=== PATIENT | female | born 1950 | race Caucasian/White ===

== ENCOUNTER 2018-05-23 15:35 | Observation (INO) | payer MEDICARE ==
[~2018-05-23] VITALS: Ht 167.6 cm; Wt 75.4 kg
[~2018-05-23 15:35] MED LIST: ADV50100 INH; FURO40TA4 PO; HYDR8TAB18; OMEP40CA37 PO; OXYC-145 PO; POTA-82 PO; SPIIN INH; TRAZ-218 PO; VAL5T PO
[2018-05-23 16:16] LABS: BASOPHILS % (AUTO) 0.4 % (0-1); EOSINOPHILS # (AUTO) 0.1 X10'3 (0-0.9); EOSINOPHILS % (AUTO) 1.8 % (0-6); HEMATOCRIT 49.9 % (35.0-45.0); HEMOGLOBIN 16.4 g/dl (12.0-16.0); LYMPHOCYTES # (AUTO) 1.3 X10'3 (1.1-4.8); LYMPHOCYTES % (AUTO) 22.8 % (21-51); MEAN CORPUSCULAR HEMOGLOBIN 29.9 PG (27.0-31.0); MEAN CORPUSCULAR HGB CONC 32.9 g/dL (33.0-36.5); MEAN PLATELET VOLUME 9.1 FL (7.4-10.4); MONOCYTES # (AUTO) 0.5 X10'3 (0-0.9); MONOCYTES % (AUTO) 8.9 % (2-12); NEUTROPHILS # (AUTO) 3.8 X10'3 (1.8-7.7); NEUTROPHILS % (AUTO) 66.1 % (42-75); PLATELET COUNT 222 X10'3 (140-440); RED BLOOD COUNT 5.49 X10'6 (4.20-5.60); RED CELL DISTRIBUTION WIDTH 13.1 % (11.5-14.5); WHITE BLOOD COUNT 5.8 X10'3 (4.5-11.0)
[2018-05-23 16:23] LABS: ALANINE AMINOTRANSFERASE 36 U/L (12-78); ALBUMIN 3.9 G/DL (3.4-5.0); ALBUMIN/GLOBULIN RATIO 1.1 (1.1-1.5); ALKALINE PHOSPHATASE 71 IU/L (46-116); ANION GAP 6 (8-16); ASPARTATE AMINO TRANSFERASE 28 U/L (10-37); BILIRUBIN,TOTAL 0.4 MG/DL (0.1-1.0); BLOOD UREA NITROGEN 12 MG/DL (7-18); BUN/CREATININE RATIO 18.5 (6.6-38.0); CALCIUM 8.9 MG/DL (8.5-10.1); CHLORIDE 100 MMOL/L (99-107); CREATININE 0.65 MG/DL (0.40-0.90); GLUCOSE 106 MG/DL (70-104); POTASSIUM 3.4 MMOL/L (3.5-5.1); SODIUM 141 MMOL/L (135-145); TOTAL CARBON DIOXIDE 34.9 MMOL/L (24-32); TOTAL PROTEIN 7.6 G/DL (6.4-8.2); eGFR > 90 ML/MIN
[2018-05-23 16:26] LABS: TROPONIN I < 0.04 NG/ML (0.0-0.05)
--- NOTE | 2018-05-23 16:37 | NUR ---
mehul martínez consult with dr. oneill
[2018-05-23 16:41] LABS: PARTIAL THROMBOPLASTIN TIME 28 SECONDS (22-32); PROTHROMBIN TIME 10.5 SECONDS (9.0-12.0)
[2018-05-23] MEDS ORDERED: iohexol 350MG/ML 100ml bottle IV ONE (17:23)
[2018-05-23] MEDS ORDERED: HYDR8TAB16 PO (17:39)
[2018-05-23] MEDS ORDERED: DIAZ-350 PO (17:39)
[2018-05-23] MEDS ORDERED: PER5325T PO (17:39)
[2018-05-23] MEDS ORDERED: [UNRECOGNIZED DRUG - OTHER] (17:42)
[2018-05-23] MEDS ORDERED: DILAUDID (17:42)
[2018-05-23] MEDS ORDERED: POTA20TA19 PO (17:43)
[2018-05-23] MEDS ORDERED: HYDR12.55 PO (17:44)
[2018-05-23] MEDS ORDERED: TRAZ-219 PO (17:44)
[2018-05-23] MEDS ORDERED: BUDE10.2 INH (17:46)
[2018-05-23] MEDS ORDERED: TIOT18CA3 PO (17:47)
[2018-05-23] MEDS ORDERED: ALBU8.5H8 IH (17:48)
[2018-05-23] MEDS ORDERED: acetaminophen 325mg tablet PO PRN (18:05)
[2018-05-23] MEDS ORDERED: magnesium hydroxide 30ml (MOM) UD suspension PO PRN (18:05)
[2018-05-23] MEDS ORDERED: mag hydrox/Alum hydrox/simeth 30ml oral suspension PO PRN (18:05)
[2018-05-23] MEDS ORDERED: ondansetron/PF 4mg/2ml inj IV PRN (18:05)
[2018-05-23] MEDS ORDERED: HYDROmorphone 2mg tablet PO PRN (18:15)
[2018-05-23] MEDS ORDERED: oxyCODONE/APAP 5-325mg tablet PO PRN (18:15)
--- NOTE | 2018-05-23 18:17 | NUR ---
PT TO CT
[2018-05-23] MEDS ORDERED: albuterol 2.5 MG/3 ML nebule NEB PRN (18:25)
[2018-05-23] MEDS ORDERED: aspirin 325mg tablet PO ONE (18:30)
[2018-05-23 18:35] LABS: CHOL/HDL RATIO 2.1 (0.00-4.99); CHOLESTEROL 121 MG/DL (0-200); HDL CHOLESTEROL 58 MG/DL (35-60); LDL CHOLESTEROL 58 MG/DL (50-100); TRIGLYCERIDES 94 MG/DL (20-135)
[2018-05-23 18:37] LABS: CLARITY,URINE CLEAR (Clear); COLOR,URINE YELLOW (Yellow); GLUCOSE, URINE NEGATIVE (Neg); KETONES,URINE NEGATIVE (Neg); LEUKOCYTE ESTERASE ,URINE TRACE (Neg); NITRITES, URINE NEGATIVE (Neg); OCCULT BLOOD,URINE NEGATIVE (Neg); PROTEIN,URINE NEGATIVE (Neg); UA COLLECTION TYPE FOLEY CATH
[2018-05-23] MEDS: dextrose 5%-1/2 normal saline 1,000 ML IV SCH ×2 (18:40→22:05)
[2018-05-23] MEDS ORDERED: albuterol 2.5 MG/3 ML nebule NEB SCH (19:00)
[2018-05-23 19:09] LABS: BACTERIA,URINE 3+ /HPF (Neg); RBC,URINE 0-2 /HPF (0-2); SQUAMOUS EPITHELIAL CELL,UR FEW /LPF (FEW); WBC,URINE 0-4 /HPF (0-4)
[2018-05-23] MEDS ORDERED: non-formulary drug (Budesonide/Formoterol Fumarate (Symbicort 160-4.5 Mcg Inhaler) 2 PUFFS INH SCH (20:00)
--- NOTE | 2018-05-23 20:49 | NUR ---
ATTEMPTED TO CALL REPORT, NO NURSE AVAILABLE TO TAKE REPORT, AIRPORT DUTY MANAGER NOTIFIED, [employer] JOURNEYMAN CONTACTED.
[2018-05-23] MEDS ORDERED: ipratropium 0.5 MG/2.5ML nebule IH SCH (21:00)
[2018-05-23] MEDS ORDERED: diazepam 5mg tablet PO SCH (21:00)
[2018-05-23] MEDS: budesonide 0.5mg/2ml UD nebule IH SCH (21:09)
[2018-05-23] MEDS: ipratropium/albuterol 3ml nebule NEB SCH (21:10)
[2018-05-23 22:00] VITALS: BP 159/67
[2018-05-23] MEDS: potassium Cl 20 mEq SR tablet PO SCH (22:06)
[2018-05-23] MEDS: traZODone 50mg tablet PO SCH (22:07)
[2018-05-24] VITALS (8 sets, daily range): BP systolic 111–145; BP diastolic 42–68
[2018-05-24] MEDS: dextrose 5%-1/2 normal saline 1,000 ML IV SCH (05:09)
[2018-05-24 05:58] LABS: BASOPHILS % (AUTO) 0.5 % (0-1); EOSINOPHILS # (AUTO) 0.1 X10'3 (0-0.9); HEMATOCRIT 44.4 % (35.0-45.0); HEMOGLOBIN 14.8 g/dl (12.0-16.0); LYMPHOCYTES # (AUTO) 1.3 X10'3 (1.1-4.8); LYMPHOCYTES % (AUTO) 25.1 % (21-51); MEAN CORPUSCULAR HEMOGLOBIN 30.2 PG (27.0-31.0); MEAN CORPUSCULAR HGB CONC 33.4 g/dL (33.0-36.5); MEAN CORPUSCULAR VOLUME 90.6 FL (78-98); MEAN PLATELET VOLUME 8.8 FL (7.4-10.4); MONOCYTES # (AUTO) 0.5 X10'3 (0-0.9); MONOCYTES % (AUTO) 10.2 % (2-12); NEUTROPHILS # (AUTO) 3.3 X10'3 (1.8-7.7); NEUTROPHILS % (AUTO) 62.2 % (42-75); PLATELET COUNT 200 X10'3 (140-440); WHITE BLOOD COUNT 5.3 X10'3 (4.5-11.0)
[2018-05-24 06:03] LABS: ALBUMIN 3.1 G/DL (3.4-5.0); ANION GAP 5 (8-16); BLOOD UREA NITROGEN 14 MG/DL (7-18); BUN/CREATININE RATIO 22.6 (6.6-38.0); CALCIUM 8.1 MG/DL (8.5-10.1); CHLORIDE 107 MMOL/L (99-107); CHOLESTEROL 98 MG/DL (0-200); CREATININE 0.62 MG/DL (0.40-0.90); GLUCOSE 100 MG/DL (70-104); HDL CHOLESTEROL 48 MG/DL (35-60); LDL CHOLESTEROL 46 MG/DL (50-100); POTASSIUM 3.7 MMOL/L (3.5-5.1); SODIUM 144 MMOL/L (135-145); TOTAL CARBON DIOXIDE 31.6 MMOL/L (24-32); TRIGLYCERIDES 37 MG/DL (20-135); eGFR > 90 ML/MIN
--- NOTE | 2018-05-24 06:30 | NUR ---
Patient in room [facility] 4009. I have received report from Lynne RN and had the opportunity to ask questions and assume patient care.
[2018-05-24] MEDS: potassium Cl 20 mEq SR tablet PO SCH (08:23)
[2018-05-24] MEDS: aspirin 325mg tablet, delayed-release (Ecotrin) PO SCH (08:23)
[2018-05-24] MEDS: HYDROchlorothiazide 12.5mg capsule PO SCH (08:23)
[2018-05-24] MEDS: enoxaparin 40mg/0.4ml syringe SUBCUT SCH (08:23)
[2018-05-24] MEDS: ipratropium/albuterol 3ml nebule NEB SCH ×2 (08:41→11:00)
[2018-05-24] MEDS: budesonide 0.5mg/2ml UD nebule IH SCH ×2 (08:42→20:34)
[2018-05-24 13:45] LABS: URINE AMPHETAMINE SCREEN NEGATIVE (Neg); URINE BARBITUATE SCREEN NEGATIVE (Neg); URINE BENZODIAZEPINES SCREEN POSITIVE (Neg); URINE CANNABINOID SCREEN NEGATIVE (Neg); URINE COCAINE SCREEN NEGATIVE (Neg); URINE METHADONE SCREEN NEGATIVE (Neg); URINE OPIATE SCREEN POSITIVE (Neg); URINE PHENCYCLIDINE SCREEN NEGATIVE (Neg)
[2018-05-24] MEDS ORDERED: HYDROmorphone 2mg tablet PO PRN (14:30)
[2018-05-24] MEDS ORDERED: ipratropium/albuterol 3ml nebule NEB PRN (14:35)
[2018-05-24] MEDS ORDERED: diazepam 5mg tablet PO PRN (14:35)
[2018-05-24] MEDS: sertraline 25mg tablet PO SCH (15:19)
[2018-05-24] MEDS: potassium Cl 20mEq in NS 1,000 ML IV SCH (15:19)
--- NOTE | 2018-05-24 18:32 | NUR ---
Problems reprioritized. Patient report given, questions answered & plan of care reviewed with Erin MEEK.
[2018-05-24] MEDS: cefuroxime axetil 250mg tablet PO SCH (21:39)
[2018-05-24] MEDS: traZODone 50mg tablet PO SCH (21:40)
[2018-05-25] MEDS: potassium Cl 20mEq in NS 1,000 ML IV SCH (05:29)
[2018-05-25 06:00] VITALS: BP 139/58
[2018-05-25 06:30] LABS: ALBUMIN 3.1 G/DL (3.4-5.0); ANION GAP 7 (8-16); BLOOD UREA NITROGEN 14 MG/DL (7-18); BUN/CREATININE RATIO 23.3 (6.6-38.0); CALCIUM 8.3 MG/DL (8.5-10.1); CHLORIDE 108 MMOL/L (99-107); GLUCOSE 91 MG/DL (70-104); POTASSIUM 3.7 MMOL/L (3.5-5.1); SODIUM 146 MMOL/L (135-145); TOTAL CARBON DIOXIDE 30.7 MMOL/L (24-32); eGFR > 90 ML/MIN
[2018-05-25 07:30] VITALS: BP 147/62
[2018-05-25] MEDS: budesonide 0.5mg/2ml UD nebule IH SCH (08:00)
[2018-05-25 08:26] VITALS: BP_SYST 157; BP_SYST 165; BP_DIAS 50; BP_DIAS 59; BP_DIAS 61
[2018-05-25] MEDS: cefuroxime axetil 250mg tablet PO SCH (08:49)
[2018-05-25] MEDS: sertraline 25mg tablet PO SCH (08:51)
[2018-05-25] MEDS: HYDROchlorothiazide 12.5mg capsule PO SCH (08:51)
[2018-05-25] MEDS: enoxaparin 40mg/0.4ml syringe SUBCUT SCH (08:51)
[2018-05-25] MEDS: aspirin 325mg tablet, delayed-release (Ecotrin) PO SCH (08:51)
[2018-05-25 10:00] VITALS: BP 137/53
[2018-05-25] MEDS ORDERED: SERT25TA5 PO (11:53)
[2018-05-25] MEDS ORDERED: CEFU250T95 PO (11:53)
--- NOTE | 2018-05-25 11:58 | NUR ---
Student documentation: I have reviewed all interventions, assessments performed and documented by Herminia Robin. Student Medication Administration: For this medication-pass time frame, all medication were reviewed, dispensed, administered and documented per hospital policy by Herminia Robin.
[2018-05-25] MEDS ORDERED: lactobacillus rhamnosus 10,000 MMU CELLS/CAPSULE PO SCH (20:00)
== END 2018-05-25 14:20 | disposition home or self-care (01) ==
LOC: ER 15:37 → ED HOLD 18:03 → ORTHO 4S 22:00 → CMPBEDREQ 22:00
PROVIDERS: ADMIT Internal Medicine; ATTEND Internal Medicine
DX: F32.9 Major depressive disorder, single episode, unspecified (principal); J44.9 Chronic obstructive pulmonary disease, unspecified; G89.4 Chronic pain syndrome; I10 Essential (primary) hypertension; F17.200 Nicotine dependence, unspecified, uncomplicated; R29.810 Facial weakness; N39.0 Urinary tract infection, site not specified; G93.40 Encephalopathy, unspecified; G47.00 Insomnia, unspecified; M06.9 Rheumatoid arthritis, unspecified; I25.10 Atherosclerotic heart disease of native coronary artery without angina pectoris; F11.20 Opioid dependence, uncomplicated; I25.2 Old myocardial infarction; Z79.4 Long term (current) use of insulin; Z90.49 Acquired absence of other specified parts of digestive tract; Z90.710 Acquired absence of both cervix and uterus; Z86.59 Personal history of other mental and behavioral disorders
CPT/HCPCS: 36415; 70450; 70496; 70498; 71045; 80048; 80053; 80061; 80305; 81001; 82948; 84484; 85025; 85610; 85730; 87070; 87077; 87088; 87186; 93005; 93306; 94640; 94760; 95816; 96360; 96361; 96372; 97110; 97116; 97161; 97530; 99284; G0378; Q9967; J1650; J7626

== ENCOUNTER 2018-09-10 20:09 | Emergency (ER) | payer MEDICARE ==
[~2018-09-10] VITALS: Ht 167.6 cm; Wt 75.0 kg
[~2018-09-10 20:09] MED LIST changes: -ADV50100 INH; +ALBU8.5H8 IH; +BUDE10.2 INH; +CEFU250T95 PO; +DIAZ-350 PO; +DILAUDID; -FURO40TA4 PO; +HYDR12.55 PO; +HYDR8TAB16 PO; -HYDR8TAB18; -OMEP40CA37 PO; -OXYC-145 PO; -POTA-82 PO; +POTA20TA19 PO; +SERT25TA5 PO; -SPIIN INH; +TIOT18CA3 PO; -TRAZ-218 PO; +TRAZ-219 PO; -VAL5T PO; +[UNRECOGNIZED DRUG - OTHER]
[2018-09-10 23:02] LABS: CLARITY,URINE CLEAR (Clear); COLOR,URINE YELLOW (Yellow); GLUCOSE, URINE NEGATIVE (Neg); KETONES,URINE NEGATIVE (Neg); LEUKOCYTE ESTERASE ,URINE NEGATIVE (Neg); NITRITES, URINE NEGATIVE (Neg); OCCULT BLOOD,URINE NEGATIVE (Neg); PROTEIN,URINE NEGATIVE (Neg); UROBILINOGEN,URINE 0.2 E.U/dL (0.2-1.0)
[2018-09-10] MEDS ORDERED: ondansetron/PF 4mg/2ml inj IV ONE (23:20)
[2018-09-10] MEDS ORDERED: normal saline 1000ML IV soln IVB ONE (23:20)
[2018-09-10] MEDS ORDERED: HYDROmorphone 1 mg/ml syringe IV ONE (23:20)
[2018-09-10 23:22] LABS: UA COLLECTION TYPE CLN CATCH MIDSTREAM
[2018-09-10 23:54] LABS: BASOPHILS % (AUTO) 0.5 % (0-1); EOSINOPHILS # (AUTO) 0.1 X10'3 (0-0.9); HEMATOCRIT 51.7 % (35.0-45.0); HEMOGLOBIN 17.4 g/dl (12.0-16.0); LYMPHOCYTES # (AUTO) 1.7 X10'3 (1.1-4.8); LYMPHOCYTES % (AUTO) 22.7 % (21-51); MEAN CORPUSCULAR HGB CONC 33.7 g/dL (33.0-36.5); MEAN PLATELET VOLUME 8.5 FL (7.4-10.4); MONOCYTES # (AUTO) 0.7 X10'3 (0-0.9); MONOCYTES % (AUTO) 8.9 % (2-12); NEUTROPHILS % (AUTO) 66.9 % (42-75); PLATELET COUNT 213 X10'3 (140-440); RED BLOOD COUNT 5.62 X10'6 (4.20-5.60); RED CELL DISTRIBUTION WIDTH 13.1 % (11.5-14.5); WHITE BLOOD COUNT 7.5 X10'3 (4.5-11.0)
[2018-09-11 00:15] LABS: ALANINE AMINOTRANSFERASE 37 U/L (12-78); ALBUMIN 3.9 G/DL (3.4-5.0); ALBUMIN/GLOBULIN RATIO 1.1 (1.1-1.5); ALKALINE PHOSPHATASE 52 IU/L (46-116); ANION GAP 5 (8-16); ASPARTATE AMINO TRANSFERASE 25 U/L (10-37); BILIRUBIN,TOTAL 0.9 MG/DL (0.1-1.0); BLOOD UREA NITROGEN 13 MG/DL (7-18); CALCIUM 9.1 MG/DL (8.5-10.1); CHLORIDE 101 MMOL/L (99-107); CREATININE 0.65 MG/DL (0.40-0.90); GLUCOSE 90 MG/DL (70-104); POTASSIUM 3.6 MMOL/L (3.5-5.1); SODIUM 137 MMOL/L (135-145); TOTAL CARBON DIOXIDE 31.3 MMOL/L (24-32); TOTAL PROTEIN 7.4 G/DL (6.4-8.2); eGFR > 90 ML/MIN
--- NOTE | 2018-09-11 00:15 | NUR ---
Discussed rationale for pain meds with pt who had been refusing it prior to assumption of care. She is now considering it.
[2018-09-11 00:16] LABS: LIPASE 90 U/L (73-393)
--- NOTE | 2018-09-11 01:00 | NUR ---
Addressed pt's pain med refusal again as she continues to be unable to obtain a position of comfort. Pt has agreed to pain meds. SO and daughter bedside.
[2018-09-11] MEDS ORDERED: BUPIVAcaine/PF 2.5 mg/ml (0.25%) 30ml vial IJ ONE ×2 (01:45→01:50)
[2018-09-11] MEDS ORDERED: BUPIVAcaine/PF 2.5mg/ml (0.25%) 10ml vial IJ ONE (02:10)
--- NOTE | 2018-09-11 02:17 | NUR ---
Dr Doshi engaged in point of pain procedure. PTW. Family remains bedside.
[2018-09-11 03:00] VITALS: BP 166/86
== END 2018-09-11 03:02 | disposition home or self-care (01) ==
LOC: ER 20:10
DX: G89.29 Other chronic pain (principal); M54.5 Low back pain; J44.9 Chronic obstructive pulmonary disease, unspecified; M06.9 Rheumatoid arthritis, unspecified; Z88.5 Allergy status to narcotic agent; Z88.6 Allergy status to analgesic agent; Z79.2 Long term (current) use of antibiotics; Z79.899 Other long term (current) drug therapy; Z90.710 Acquired absence of both cervix and uterus; Z98.890 Other specified postprocedural states
CPT/HCPCS: 36415; 74176; 80053; 81003; 83690; 85025; 96374; 96375; 99284; J1170; J2405; J3490; J7030

== ENCOUNTER 2020-12-13 21:28 | Emergency (ER) | payer MEDICARE ==
[~2020-12-13] VITALS: Ht 168.9 cm; Wt 71.0 kg
[~2020-12-13 21:28] MED LIST changes: +ALBU8.5H17 IH; -ALBU8.5H8 IH; +SERT-432 PO; -SERT25TA5 PO; -TRAZ-219 PO; +TRAZ-256 PO
[2020-12-13 23:24] LABS: BASOPHILS % (AUTO) 0.1 % (0-1); EOSINOPHILS # (AUTO) 0.1 X10'3 (0-0.9); EOSINOPHILS % (AUTO) 0.5 % (0-6); HEMATOCRIT 43.2 % (35.0-45.0); HEMOGLOBIN 14.4 g/dl (12.0-16.0); LYMPHOCYTES # (AUTO) 1.1 X10'3 (1.1-4.8); LYMPHOCYTES % (AUTO) 7.7 % (21-51); MEAN CORPUSCULAR HEMOGLOBIN 30.6 PG (27.0-31.0); MEAN CORPUSCULAR HGB CONC 33.3 g/dL (33.0-36.5); MEAN CORPUSCULAR VOLUME 91.8 FL (78-98); MEAN PLATELET VOLUME 7.7 FL (7.4-10.4); MONOCYTES # (AUTO) 1.1 X10'3 (0-0.9); MONOCYTES % (AUTO) 7.7 % (2-12); NEUTROPHILS # (AUTO) 11.7 X10'3 (1.8-7.7); PLATELET COUNT 259 X10'3 (140-440); RED CELL DISTRIBUTION WIDTH 12.7 % (11.5-14.5); WHITE BLOOD COUNT 13.9 X10'3 (4.5-11.0)
[2020-12-13] MEDS ORDERED: epiNEPHrine 1 mg/ml inj IM PRN (23:45)
[2020-12-13] MEDS ORDERED: hydrocortisone sod succ/PF 100mg/2ml inj. IV PRN (23:45)
[2020-12-13] MEDS ORDERED: [UNRECOGNIZED DRUG - OTHER] IV ONE ×6 (23:45)
[2020-12-13] MEDS ORDERED: famotidine/PF 10 mg/ml inj IV PRN (23:45)
[2020-12-13] MEDS ORDERED: dexamethasone 4mg tablet PO ONE (23:45)
[2020-12-13] MEDS ORDERED: diphenhydrAMINE 50 mg/ml inj IV PRN (23:45)
[2020-12-13] MEDS ORDERED: albuterol 2.5 MG/3 ML nebule NEB PRN (23:45)
[2020-12-13] MEDS ORDERED: acetaminophen 325mg tablet PO PRN (23:45)
[2020-12-13 23:56] LABS: ALANINE AMINOTRANSFERASE 32 U/L (12-78); ALBUMIN 3.3 G/DL (3.4-5.0); ALBUMIN/GLOBULIN RATIO 0.9 (1.1-1.5); ALKALINE PHOSPHATASE 81 IU/L (46-116); ANION GAP 7 (8-16); ASPARTATE AMINO TRANSFERASE 16 U/L (10-37); BILIRUBIN,TOTAL 0.5 MG/DL (0.1-1.0); BLOOD UREA NITROGEN 12 MG/DL (7-18); BUN/CREATININE RATIO 17.1 (6.6-38.0); CALCIUM 8.8 MG/DL (8.5-10.1); CHLORIDE 106 MMOL/L (99-107); GLUCOSE 119 MG/DL (70-104); POTASSIUM 3.9 MMOL/L (3.5-5.1); SODIUM 143 MMOL/L (135-145); TOTAL CARBON DIOXIDE 29.8 MMOL/L (24-32); eGFR 83 ML/MIN
[2020-12-14] MEDS ORDERED: BENZ-16 PO (00:02)
[2020-12-14] MEDS ORDERED: AZIT-72 PO (00:02)
[2020-12-14 00:31] LABS: UA COLLECTION TYPE NON-SPECIFIED
[2020-12-14 00:32] LABS: CLARITY,URINE SLIGHTLY CLOUDY (Clear); COLOR,URINE YELLOW (Yellow); GLUCOSE, URINE NEGATIVE (Neg); KETONES,URINE NEGATIVE (Neg); LEUKOCYTE ESTERASE ,URINE NEGATIVE (Neg); NITRITES, URINE NEGATIVE (Neg); OCCULT BLOOD,URINE NEGATIVE (Neg); PH,URINE 6.5 (4.8-8.0); PROTEIN,URINE NEGATIVE (Neg); UROBILINOGEN,URINE 0.2 E.U/dL (0.2-1.0)
[2020-12-14 00:33] LABS: BACTERIA,URINE 4+ /HPF (Neg); RBC,URINE 0-2 /HPF (0-2); SQUAMOUS EPITHELIAL CELL,UR FEW /LPF (FEW); WBC CLUMPS,URINE MODERATE /HPF (NEGATIVE)
[2020-12-14 01:36] LABS: C-REACTIVE PROTEIN 6.34 MG/DL (0.0-0.5); LACTATE DEHYDROGENASE 190 U/L (81-234)
[2020-12-14] MEDS ORDERED: DEXA6TAB6 PO (02:07)
[2020-12-14 02:32] VITALS: BP 142/82
== END 2020-12-14 02:39 | disposition home or self-care (01) ==
LOC: ER 21:29
DX: U07.1 COVID-19 (principal); J44.9 Chronic obstructive pulmonary disease, unspecified; G89.29 Other chronic pain; M81.0 Age-related osteoporosis without current pathological fracture; Z87.442 Personal history of urinary calculi; Z90.49 Acquired absence of other specified parts of digestive tract; Z98.890 Other specified postprocedural states; Z90.710 Acquired absence of both cervix and uterus; Z88.1 Allergy status to other antibiotic agents; Z88.6 Allergy status to analgesic agent; Z88.8 Allergy status to other drugs, medicaments and biological substances; Z79.2 Long term (current) use of antibiotics; Z79.899 Other long term (current) drug therapy
CPT/HCPCS: 36415; 71045; 80053; 81001; 83615; 83880; 84484; 85025; 86140; 87077; 87088; 87186; 87635; 93005; 99285; C9803; M0243; Q0243; 81003

== ENCOUNTER 2021-04-04 13:55 | Emergency (ER) | payer MEDICARE ==
[~2021-04-04] VITALS: Ht 167.6 cm; Wt 75.0 kg
[~2021-04-04 13:55] MED LIST changes: +DEXA6TAB6 PO; +POTA-207 PO; -POTA20TA19 PO
[2021-04-04 15:28] LABS: BASOPHILS % (AUTO) 0.3 % (0-1); EOSINOPHILS # (AUTO) 0.1 X10'3 (0-0.9); EOSINOPHILS % (AUTO) 0.6 % (0-6); HEMOGLOBIN 15.6 g/dl (12.0-16.0); LYMPHOCYTES % (AUTO) 8.6 % (21-51); MEAN CORPUSCULAR HEMOGLOBIN 31.4 PG (27.0-31.0); MEAN CORPUSCULAR HGB CONC 33.8 g/dL (33.0-36.5); MEAN CORPUSCULAR VOLUME 92.8 FL (78-98); MEAN PLATELET VOLUME 8.3 FL (7.4-10.4); MONOCYTES # (AUTO) 0.8 X10'3 (0-0.9); MONOCYTES % (AUTO) 6.8 % (2-12); NEUTROPHILS # (AUTO) 9.6 X10'3 (1.8-7.7); NEUTROPHILS % (AUTO) 83.7 % (42-75); PLATELET COUNT 220 X10'3 (140-440); RED BLOOD COUNT 4.96 X10'6 (4.20-5.60); RED CELL DISTRIBUTION WIDTH 13.2 % (11.5-14.5); WHITE BLOOD COUNT 11.4 X10'3 (4.5-11.0)
[2021-04-04 15:41] LABS: D-DIMER 0.33 MG/L FEU (0-0.50)
[2021-04-04 15:45] LABS: ALANINE AMINOTRANSFERASE 39 U/L (12-78); ALBUMIN 3.8 G/DL (3.4-5.0); ALBUMIN/GLOBULIN RATIO 1.2 (1.1-1.5); ALKALINE PHOSPHATASE 64 IU/L (46-116); ANION GAP 7 (8-16); ASPARTATE AMINO TRANSFERASE 23 U/L (10-37); BILIRUBIN,TOTAL 0.4 MG/DL (0.1-1.0); BLOOD UREA NITROGEN 16 MG/DL (7-18); BUN/CREATININE RATIO 23.2 (6.6-38.0); CALCIUM 8.6 MG/DL (8.5-10.1); CHLORIDE 105 MMOL/L (99-107); CREATININE 0.69 MG/DL (0.40-0.90); GLUCOSE 93 MG/DL (70-104); POTASSIUM 3.8 MMOL/L (3.5-5.1); SODIUM 143 MMOL/L (135-145); TOTAL PROTEIN 6.9 G/DL (6.4-8.2); eGFR 84 ML/MIN
[2021-04-05] MEDS ORDERED: AZIT500T2 PO (00:38)
[2021-04-05 01:01] VITALS: BP 158/61
== END 2021-04-05 01:03 | disposition home or self-care (01) ==
LOC: ER 13:56
DX: U09.9 Post COVID-19 condition, unspecified (principal); R05.9 Cough, unspecified; R04.2 Hemoptysis; R06.02 Shortness of breath; R50.9 Fever, unspecified; G89.29 Other chronic pain; F41.9 Anxiety disorder, unspecified; F32.9 Major depressive disorder, single episode, unspecified; Z87.440 Personal history of urinary (tract) infections; Z90.89 Acquired absence of other organs; Z90.49 Acquired absence of other specified parts of digestive tract; Z90.710 Acquired absence of both cervix and uterus; Z98.890 Other specified postprocedural states; Z88.0 Allergy status to penicillin; Z88.2 Allergy status to sulfonamides; Z88.1 Allergy status to other antibiotic agents; Z88.8 Allergy status to other drugs, medicaments and biological substances; Z79.2 Long term (current) use of antibiotics; Z79.899 Other long term (current) drug therapy
CPT/HCPCS: 36415; 71045; 80053; 83880; 84484; 85025; 85379; 85610; 93005; 93971; 99285

== ENCOUNTER 2023-12-30 07:01 | Inpatient (IN) | payer MEDICARE, MEDICAID ==
[2023-12-20 11:44] LABS: BILIRUBIN,URINE NEGATIVE (Neg); CLARITY,URINE CLEAR (Clear); COLOR,URINE YELLOW (Yellow); GLUCOSE, URINE NEGATIVE (Neg); KETONES,URINE NEGATIVE (Neg); LEUKOCYTE ESTERASE ,URINE NEGATIVE (Neg); NITRITES, URINE NEGATIVE (Neg); OCCULT BLOOD,URINE NEGATIVE (Neg); PROTEIN,URINE NEGATIVE (Neg); UROBILINOGEN,URINE 0.2 E.U/dL (0.2-1.0)
[2023-12-20 11:53] LABS: UA COLLECTION TYPE CLN CATCH MIDSTREAM
[2023-12-20 14:30] LABS: BASOPHILS % (AUTO) 0.3 % (0-1); EOSINOPHILS # (AUTO) 0.1 X10'3 (0-0.9); EOSINOPHILS % (AUTO) 1.2 % (0-6); LYMPHOCYTES # (AUTO) 1.3 X10'3 (1.1-4.8); MEAN CORPUSCULAR HEMOGLOBIN 30.1 PG (27.0-31.0); MEAN CORPUSCULAR HGB CONC 32.9 g/dL (33.0-36.5); MEAN CORPUSCULAR VOLUME 91.3 FL (78-98); MEAN PLATELET VOLUME 7.8 FL (7.4-10.4); MONOCYTES # (AUTO) 0.7 X10'3 (0-0.9); NEUTROPHILS # (AUTO) 5.6 X10'3 (1.8-7.7); NEUTROPHILS % (AUTO) 72.5 % (42-75); PRE OP HEMATOCRIT 44.5 % (35.0-45.0); PRE OP HEMOGLOBIN 14.7 g/dL (12.0-16.0); PRE OP PLATELET COUNT 238 X10'3 (140-440); PRE OP WHITE BLOOD COUNT 7.7 10'3 (4.8-10.8); RED BLOOD COUNT 4.87 X10'6 (4.20-5.60); RED CELL DISTRIBUTION WIDTH 13.6 % (11.5-14.5)
[2023-12-20 14:42] LABS: ALBUMIN 3.4 G/DL (3.4-5.0); ALBUMIN/GLOBULIN RATIO 0.8 (1.1-1.5); ALKALINE PHOSPHATASE 64 IU/L (46-116); BLOOD UREA NITROGEN 12 MG/DL (7-18); BUN/CREATININE RATIO 20.7 (10.0-20.0); CALCIUM 8.4 MG/DL (8.5-10.1); CHLORIDE 104 MMOL/L (99-107); CREATININE 0.58 MG/DL (0.40-0.90); PRE OP ALT 24 U/L (30-65); PRE OP ANION GAP 5 (8-16); PRE OP AST 19 U/L (10-37); PRE OP BILIRUB, TOTAL 0.4 MG/DL (0.0-1.0); PRE OP GLUCOSE 84 MG/DL (70-104); PRE OP POTASSIUM 3.9 MMOL/L (3.4-5.1); PRE OP SODIUM 140 MMOL/L (135-145); TOTAL CARBON DIOXIDE 31.2 MMOL/L (24-32); TOTAL PROTEIN 7.5 G/DL (6.4-8.2); eGFR > 90 ML/MIN
[~2023-12-30] VITALS: Ht 167.6 cm; Wt 73.4 kg
[2023-12-30] VITALS (53 sets, daily range): BP systolic 115–170; BP diastolic 48–83; PULSE 56–80; RESP 11–18; TEMP 97.8–99; O2SAT 93–98
[2023-12-30] MEDS: cefazolin 2gm/D5W 100mL 100 ML IV ONE (05:30)
[~2023-12-30 07:01] MED LIST changes: +AMLO10TA13 PO; -BUDE10.2 INH; +CARB15DR EACHEYE; -CEFU250T95 PO; +D-MA1POW; -DEXA6TAB6 PO; +DICL100T85; +DULO30CA52 PO; +FLUT1BLS4 INH; -HYDR12.55 PO; -HYDR8TAB16 PO; +KETO5DRO40 EACHEYE; +MULT-1249 PO; +OMEP40CA21 PO; +ONDA-243 PO; +OXYGEN NASALCANN; +POLOS EACHEYE; +POLY119P2 PO; -POTA-207 PO; +PRED5DRO23; +SENNAKOT; -SERT-432 PO; -TIOT18CA3 PO; +TRAM50TA2 PO; +VALS320T17 PO; +VIBE75TA; +VITAMIN B-12; +VITAMIN D3; +albuterol 2.5 MG/3 ML nebule NEB PRN
[2023-12-30] MEDS: ROPIVAcaine 0.5% (5mg/ml) 30ml vial ONE (07:04)
[2023-12-30] MEDS: bacitracin 15gm ointment TP ONE (07:04)
[2023-12-30] MEDS ORDERED: meperidine/PF 25mg/ml syringe IV PRN ×2 (07:30)
[2023-12-30] MEDS: ringers solution, lacted 1,000 ML IV SCH ×2 (07:30→08:21)
[2023-12-30] MEDS ORDERED: labetalol 20mg/4ml (5mg/ml) syringe IV PRN (07:30)
[2023-12-30] MEDS ORDERED: enalaprilat dihydrate 2.5mg/2ml vial IV PRN (07:30)
[2023-12-30] MEDS ORDERED: proCHLORperazine 10 MG/2 ml inj IV PRN (07:30)
[2023-12-30] MEDS ORDERED: ondansetron/PF 4mg/2ml inj IV PRN ×2 (07:30→20:35)
[2023-12-30] MEDS: albuterol 2.5 MG/3 ML nebule NEB ONE (08:00)
[2023-12-30] MEDS: BUPIVAcaine 2.5mg/ml inj 50ml vial (contains preservative) ONE (08:05)
[2023-12-30] MEDS: famotidine 20mg tablet PO ONE (08:16)
[2023-12-30] MEDS ORDERED: ROPIVAcaine 0.5% (5mg/ml) 30ml vial ONE (08:40)
[2023-12-30] MEDS ORDERED: MIDAZolam 1 MG/ML 5ML VIAL ONE (08:41)
[2023-12-30] MEDS ORDERED: fentaNYL/PF 50MCG/1 ML 2ML syringe ONE (08:41)
[2023-12-30] MEDS ORDERED: sevoflurane 250ml liquid IH ONE (08:53)
[2023-12-30] MEDS ORDERED: propofol inj 20 ML IV ONE (11:36)
[2023-12-30] MEDS ORDERED: acetaminophen 1,000mg/100ml IV 100 ML IV ONE (11:40)
[2023-12-30] MEDS ORDERED: ondansetron/PF 4mg/2ml inj ONE (11:43)
[2023-12-30] MEDS: meperidine/PF 25mg/ml syringe IV PRN (12:15)
[2023-12-30] MEDS: traZODone 50mg tablet PO SCH (22:48)
[2023-12-31] VITALS (9 sets, daily range): BP systolic 98–137; BP diastolic 36–84; PULSE 54–79; RESP 15–19; TEMP 97.9–98.4; O2SAT 92–100
[2023-12-31] MEDS: oxyCODONE/APAP 5-325mg tablet PO PRN (04:14)
[2023-12-31] MEDS: amLODIPine 5mg tablet PO SCH (08:00)
[2023-12-31] MEDS: losartan 50mg tablet PO SCH (08:00)
[2023-12-31] MEDS: pantoprazole 40mg Tablet.DR PO SCH (08:13)
[2023-12-31] MEDS: multivitamins, therapeutics tablet PO SCH (08:13)
[2023-12-31] MEDS: polyethylene glycol 3350 17gm powd pack PO SCH (08:18)
[2023-12-31] MEDS: duloxetine 30mg CAPSULE.DR PO SCH (08:18)
[2023-12-31] MEDS: HYDROmorphone 1 mg/ml syringe IV PRN (16:19)
[2023-12-31] MEDS ORDERED: hydrALAZINE 20mg/ml inj. IV PRN (19:30)
[2023-12-31] MEDS ORDERED: albuterol 2.5 MG/3 ML nebule NEB PRN ×2 (20:00)
[2023-12-31] MEDS: diazepam 5mg tablet PO PRN (21:28)
[2023-12-31] MEDS: nicotine 14mg patch - 24hr TD SCH (21:33)
[2024-01-01] VITALS (8 sets, daily range): BP systolic 123–141; BP diastolic 46–64; PULSE 57–72; RESP 16–19; TEMP 97.6–99.1; O2SAT 92–95
[2024-01-01 06:38] LABS: BASOPHILS % (AUTO) 0.3 % (0-1); EOSINOPHILS # (AUTO) 0.1 X10'3 (0-0.9); HEMATOCRIT 41.9 % (35.0-45.0); HEMOGLOBIN 13.7 g/dl (12.0-16.0); LYMPHOCYTES # (AUTO) 1.5 X10'3 (1.1-4.8); LYMPHOCYTES % (AUTO) 21.1 % (21-51); MEAN CORPUSCULAR HEMOGLOBIN 30.1 PG (27.0-31.0); MEAN CORPUSCULAR HGB CONC 32.6 g/dL (33.0-36.5); MEAN CORPUSCULAR VOLUME 92.2 FL (78-98); MEAN PLATELET VOLUME 8.5 FL (7.4-10.4); MONOCYTES # (AUTO) 0.7 X10'3 (0-0.9); MONOCYTES % (AUTO) 10.3 % (2-12); NEUTROPHILS # (AUTO) 4.7 X10'3 (1.8-7.7); NEUTROPHILS % (AUTO) 67.3 % (42-75); PLATELET COUNT 191 X10'3 (140-440); RED BLOOD COUNT 4.54 X10'6 (4.20-5.60); RED CELL DISTRIBUTION WIDTH 13.5 % (11.5-14.5)
[2024-01-01 06:49] LABS: ALANINE AMINOTRANSFERASE 14 U/L (12-78); ALBUMIN 2.8 G/DL (3.4-5.0); ALBUMIN/GLOBULIN RATIO 0.8 (1.1-1.5); ALKALINE PHOSPHATASE 48 IU/L (46-116); ANION GAP -1 (8-16); ASPARTATE AMINO TRANSFERASE 14 U/L (10-37); BILIRUBIN,TOTAL 0.4 MG/DL (0.1-1.0); BLOOD UREA NITROGEN 15 MG/DL (7-18); BUN/CREATININE RATIO 19.7 (10.0-20.0); CALCIUM 8.5 MG/DL (8.5-10.1); CHLORIDE 103 MMOL/L (99-107); CREATININE 0.76 MG/DL (0.40-0.90); GLUCOSE 96 MG/DL (70-104); POTASSIUM 4.9 MMOL/L (3.5-5.1); SODIUM 140 MMOL/L (135-145); TOTAL CARBON DIOXIDE 37.5 MMOL/L (24-32); TOTAL PROTEIN 6.2 G/DL (6.4-8.2); eCRCL 63 ML/MIN; eGFR 75 ML/MIN
[2024-01-01] MEDS: normal saline 1000ml 1,000 ML IV SCH (08:31)
[2024-01-02 06:00] VITALS: BP 149/67; PULSE 70; RESP 18; TEMP 97.5; O2SAT 94
[2024-01-02 06:56] LABS: BASOPHILS % (AUTO) 0.3 % (0-1); EOSINOPHILS # (AUTO) 0.1 X10'3 (0-0.9); EOSINOPHILS % (AUTO) 1.5 % (0-6); HEMATOCRIT 45.3 % (35.0-45.0); LYMPHOCYTES # (AUTO) 1.3 X10'3 (1.1-4.8); LYMPHOCYTES % (AUTO) 20.4 % (21-51); MEAN CORPUSCULAR HEMOGLOBIN 30.6 PG (27.0-31.0); MEAN CORPUSCULAR HGB CONC 33.2 g/dL (33.0-36.5); MEAN CORPUSCULAR VOLUME 92.2 FL (78-98); MEAN PLATELET VOLUME 8.3 FL (7.4-10.4); MONOCYTES # (AUTO) 0.6 X10'3 (0-0.9); MONOCYTES % (AUTO) 10.1 % (2-12); NEUTROPHILS # (AUTO) 4.3 X10'3 (1.8-7.7); NEUTROPHILS % (AUTO) 67.7 % (42-75); PLATELET COUNT 224 X10'3 (140-440); RED BLOOD COUNT 4.91 X10'6 (4.20-5.60); RED CELL DISTRIBUTION WIDTH 13.6 % (11.5-14.5); WHITE BLOOD COUNT 6.3 X10'3 (4.5-11.0)
[2024-01-02 07:15] LABS: ALANINE AMINOTRANSFERASE 13 U/L (12-78); ALBUMIN/GLOBULIN RATIO 0.8 (1.1-1.5); ALKALINE PHOSPHATASE 52 IU/L (46-116); ANION GAP 4 (8-16); ASPARTATE AMINO TRANSFERASE 17 U/L (10-37); BILIRUBIN,TOTAL 0.5 MG/DL (0.1-1.0); BLOOD UREA NITROGEN 12 MG/DL (7-18); BUN/CREATININE RATIO 18.8 (10.0-20.0); CALCIUM 8.5 MG/DL (8.5-10.1); CHLORIDE 100 MMOL/L (99-107); CREATININE 0.64 MG/DL (0.40-0.90); GLUCOSE 87 MG/DL (70-104); POTASSIUM 3.9 MMOL/L (3.5-5.1); SODIUM 140 MMOL/L (135-145); TOTAL CARBON DIOXIDE 36.4 MMOL/L (24-32); eCRCL 74 ML/MIN; eGFR > 90 ML/MIN
[2024-01-02 08:43] VITALS: PULSE 82; RESP 16; O2SAT 92
[2024-01-02 10:00] VITALS: BP 120/60; PULSE 89; RESP 16; TEMP 97.7; O2SAT 90
[2024-01-02] MEDS: sennosides/docusate sodium tablet PO ONE (14:42)
[2024-01-02 18:00] VITALS: BP 116/54; PULSE 73; RESP 18; TEMP 97.6; O2SAT 93
[2024-01-02] MEDS: sennosides/docusate sodium tablet PO SCH (20:03)
[2024-01-02 20:37] VITALS: PULSE 86; RESP 16; O2SAT 93
[2024-01-02 22:00] VITALS: BP 123/51; PULSE 58; RESP 16; TEMP 98; O2SAT 95
[2024-01-03 06:53] LABS: BASOPHILS % (AUTO) 0.3 % (0-1); EOSINOPHILS # (AUTO) 0.1 X10'3 (0-0.9); EOSINOPHILS % (AUTO) 2.1 % (0-6); HEMATOCRIT 41.3 % (35.0-45.0); HEMOGLOBIN 13.7 g/dl (12.0-16.0); LYMPHOCYTES # (AUTO) 1.3 X10'3 (1.1-4.8); LYMPHOCYTES % (AUTO) 19.5 % (21-51); MEAN CORPUSCULAR HEMOGLOBIN 30.4 PG (27.0-31.0); MEAN CORPUSCULAR HGB CONC 33.2 g/dL (33.0-36.5); MEAN CORPUSCULAR VOLUME 91.5 FL (78-98); MEAN PLATELET VOLUME 8.2 FL (7.4-10.4); MONOCYTES # (AUTO) 0.6 X10'3 (0-0.9); MONOCYTES % (AUTO) 8.6 % (2-12); NEUTROPHILS # (AUTO) 4.5 X10'3 (1.8-7.7); NEUTROPHILS % (AUTO) 69.5 % (42-75); PLATELET COUNT 200 X10'3 (140-440); RED BLOOD COUNT 4.52 X10'6 (4.20-5.60); RED CELL DISTRIBUTION WIDTH 13.5 % (11.5-14.5); WHITE BLOOD COUNT 6.5 X10'3 (4.5-11.0)
[2024-01-03 07:02] LABS: ALANINE AMINOTRANSFERASE 26 U/L (12-78); ALBUMIN 2.6 G/DL (3.4-5.0); ALBUMIN/GLOBULIN RATIO 0.7 (1.1-1.5); ALKALINE PHOSPHATASE 51 IU/L (46-116); ANION GAP 1 (8-16); ASPARTATE AMINO TRANSFERASE 20 U/L (10-37); BILIRUBIN,TOTAL 0.6 MG/DL (0.1-1.0); BLOOD UREA NITROGEN 14 MG/DL (7-18); BUN/CREATININE RATIO 23.7 (10.0-20.0); CALCIUM 8.2 MG/DL (8.5-10.1); CHLORIDE 104 MMOL/L (99-107); CREATININE 0.59 MG/DL (0.40-0.90); GLUCOSE 87 MG/DL (70-104); POTASSIUM 3.7 MMOL/L (3.5-5.1); SODIUM 141 MMOL/L (135-145); TOTAL PROTEIN 6.3 G/DL (6.4-8.2); eCRCL 81 ML/MIN; eGFR > 90 ML/MIN
[2024-01-03 07:09] VITALS: BP 125/63; PULSE 59; RESP 16; TEMP 97.1; O2SAT 96
[2024-01-03 08:30] VITALS: RESP 16
[2024-01-03 09:31] VITALS: PULSE 67; RESP 16; O2SAT 96
[2024-01-03 10:00] VITALS: BP 126/55; PULSE 54; RESP 12; TEMP 97.4; O2SAT 92
[2024-01-03] MEDS: bisacodyl 10mg suppository rectal RC STA (14:38)
[2024-01-03 17:55] VITALS: RESP 16
== END 2024-01-03 19:30 | DRG 505 ==
LOC: PAS 07:01 → OBSVTOIN 17:15 → ORTHO 4S 17:15
PROVIDERS: ADMIT Podiatrist Foot & Ankle Surgery; ATTEND Podiatrist Foot & Ankle Surgery
PROC: 3E0T33Z Introduction of Anti-inflammatory into Peripheral Nerves and Plexi, Percutaneous Approach (ICD-10-PCS; 2023-12-30)
PROC: 0L8N0ZZ Division of Right Lower Leg Tendon, Open Approach (ICD-10-PCS; 2023-12-30)
PROC: 0SGM07Z Fusion of Right Metatarsal-Phalangeal Joint with Autologous Tissue Substitute, Open Approach (ICD-10-PCS; 2023-12-30)
PROC: 0QTN0ZZ Resection of Right Metatarsal, Open Approach (ICD-10-PCS; 2023-12-30)
PROC: 0QBL0ZZ Excision of Right Tarsal, Open Approach (ICD-10-PCS; 2023-12-30)
PROC: 3E0T3BZ Introduction of Anesthetic Agent into Peripheral Nerves and Plexi, Percutaneous Approach (ICD-10-PCS; principal; 2023-12-30 08:53)
DX: M77.41 Metatarsalgia, right foot (principal); M24.674 Ankylosis, right foot; G89.18 Other acute postprocedural pain; I10 Essential (primary) hypertension; J44.9 Chronic obstructive pulmonary disease, unspecified; Z74.09 Other reduced mobility; Z82.49 Family history of ischemic heart disease and other diseases of the circulatory system; Z83.3 Family history of diabetes mellitus; Z99.81 Dependence on supplemental oxygen; Z88.1 Allergy status to other antibiotic agents; Z88.0 Allergy status to penicillin; Z88.2 Allergy status to sulfonamides; R26.89 Other abnormalities of gait and mobility
CPT/HCPCS: 36415; 73620; 76000; 80053; 81003; 82948; 85025; 94640; 94760; 97161; 97530; A4215; A4314; A4615; A4618; A6223; A6449; A7000; C1713; G0378; J0131; J0690; J1171; J2175; J2250; J2405; J2704; J2795; J3010; J3490; J7030; J7120

== ENCOUNTER 2024-04-24 15:16 | Emergency (ER) | payer MEDICARE, MEDICAID ==
[~2024-04-24] VITALS: Ht 167.6 cm; Wt 71.3 kg
[~2024-04-24 15:16] MED LIST changes: -albuterol 2.5 MG/3 ML nebule NEB PRN
[2024-04-24 15:26] VITALS: BP 132/53; PULSE 72; RESP 18; TEMP 97.8; O2SAT 97
== END 2024-04-24 17:37 | disposition home or self-care (01) ==
LOC: ER 15:17
DX: R60.0 Localized edema (principal); J44.9 Chronic obstructive pulmonary disease, unspecified; I25.10 Atherosclerotic heart disease of native coronary artery without angina pectoris; F41.9 Anxiety disorder, unspecified; F32.A Depression, unspecified; M06.9 Rheumatoid arthritis, unspecified; Z88.0 Allergy status to penicillin; Z88.2 Allergy status to sulfonamides; Z88.5 Allergy status to narcotic agent; Z88.1 Allergy status to other antibiotic agents; Z88.8 Allergy status to other drugs, medicaments and biological substances; Z90.710 Acquired absence of both cervix and uterus; Z90.49 Acquired absence of other specified parts of digestive tract; Z98.890 Other specified postprocedural states
CPT/HCPCS: 93971; 99284

== ENCOUNTER 2024-07-04 11:49 | Outpatient (CLI) | payer MEDICARE, MEDICAID ==
[~2024-07-04 11:49] MED LIST changes: -DICL100T85; +DICL100T97
== END 2024-07-04 23:59 | disposition home or self-care (01) ==
LOC: RAD 11:49
PROVIDERS: ATTEND Podiatrist Foot & Ankle Surgery
DX: M19.072 Primary osteoarthritis, left ankle and foot (principal); M79.672 Pain in left foot; M20.10 Hallux valgus (acquired), unspecified foot; M77.41 Metatarsalgia, right foot; M79.671 Pain in right foot; M19.012 Primary osteoarthritis, left shoulder; M20.41 Other hammer toe(s) (acquired), right foot; G62.9 Polyneuropathy, unspecified; M20.42 Other hammer toe(s) (acquired), left foot; R60.0 Localized edema
CPT/HCPCS: 73700